=== PATIENT | male | born 1950 | race Caucasian/White ===

== ENCOUNTER 2016-04-29 07:57 | Inpatient (IN) | payer OTHER, MEDICARE ==
--- NOTE | ~2016-04-29 | EKG ---
PATIENT: TOM VELARDE UNIT #: [id number] Ventricular Rate: 110 BPM Atrial Rate: 110 BPM P-R Interval: 204 ms QRS Duration: 82 ms Q-T Interval: 422 ms QTC Calculation(Bezet): 571 ms P Preston: 26 degrees Calculated R Preston: 8 degrees Calculated T Preston: 51 degrees Diagnosis Line: Sinus tachycardia Diagnosis Line: Inferior infarct , age undetermined Diagnosis Line: Abnormal ECG Diagnosis Line: When compared with ECG of 15-MAY-2014 15:41, Diagnosis Line: Vent. rate has increased BY 53 BPM Diagnosis Line: Inferior infarct is now Present Diagnosis Line: ST now depressed in Lateral leads Diagnosis Line: T wave inversion now evident in Inferior leads Diagnosis Line: QT has lengthened Diagnosis Line: Confirmed by KELLEE SINGH MD ([id number]) on 05/02/2016 Diagnosis Line: 2:47:06 PM INTERPRETING MD: FRANCISCO LEE
--- NOTE | ~2016-04-29 | DS ---
Unit #: [id number] #: [id number] Patient: TOM TOLEDO [id number] [address] [place], [place] [address] [id number] I MR#: [id number] NAME: TOM TOLEDO. ROOM: [facility] Age: 65 Sex: M Admission Date: 04/29/2016 : 1950 Discharge Date: 05/04/2016 Attending Physician: Obed Blue M.D. Primary Care Physician: Marielos An M.D. DISCHARGE SUMMARY HISTORY/HOSPITAL COURSE Mr. Toledo is a 65-year-old gentleman who underwent a colonoscopy as an outpatient. He was found to have a large polypoid mass in the ascending colon. He was scheduled for a right hemicolectomy. He came in the morning of surgery and underwent a right hemicolectomy. The procedure was very routine and straightforward. The patient was admitted to the hospital postoperatively, but postoperatively he developed some tachycardia and some bright red blood per rectum, but based on his exam it appeared as though he had developed some postoperative bleeding from the staple line. He was able to be treated conservatively and the bleeding eventually stopped, but he did require transfusion of a unit of blood. Because of the persistence of his tachycardia and n.p.o. status he had to be taken off his cardiovascular medications. Cardiology was consulted. He was put on an amiodarone drip for a short period of time and then converted to oral medicines once he had regained bowel function. The patient's preoperative CEA was 1.4. 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 His final pathology was T1, N0, M0 with clear margins. He had 31 lymph nodes removed and all were clear. The patient's laboratories are now normalized. He is converted to normal sinus rhythm. He has been switched to oral cardiac medications. He is tolerating a regular diet and passing copious flatus and a small amount of stool. DISPOSITION Today he will be discharged home in stable condition once cardiology has seen the patient and addressed his cardiovascular medications for home care. DIET At home he can undergo diet as tolerated. ACTIVITY He can ambulate ad steve. He was told not to do any lifting more than 15 pounds or any strenuous activity. He may shower. DISCHARGE MEDICATION 1. He may use a laxative as needed. 2. A prescription for hydrocodone was left for pain control. FOLLOWUP He is to follow up in the office in two weeks. The patient understood these instructions and will be discharged home after he is seen by cardiology. Unit #: [id number] #: [id number] Patient: TOM TOLEDO Dictated by... Obed Blue M.D. RS/josefa TD: 05/05/2016 11:41 JOB #: [id number] DISCHARGE SUMMARY X Obed Blue MD X DISCHARGE SUMMARY
--- NOTE | ~2016-04-29 | CO ---
Unit #: [id number] #: [id number] Patient: TOM VELARDE [id number] [facility] [address]. [place], [place] [address] [id number] I MR#: [id number] NAME: TOM VELARDE ROOM: [facility] Age: 65 Sex: M Admission Date: 04/29/2016 : 1950 Attending Physician: Obed Blue M.D. Primary Care Physician: Marielos An M.D. Consultation Date: 04/30/2016 CONSULTATION REPORT REASON FOR CONSULT Tachycardia. HISTORY OF PRESENT ILLNESS This is a 65-year-old white male, known to Dr. Rudd, with a past medical history of hypertension, hyperlipidemia, diabetes mellitus type 2, and GERD. The patient has a history of syncope and bradycardia while on diltiazem. He was admitted to [facility] for this episode in 05/2014. Holter monitor was obtained and revealed rare supraventricular and ventricular ectopy. 2D echocardiogram revealed trace mitral and tricuspid regurgitation. He had mild pulmonic regurgitation. Ejection fraction was mildly low at 45% to 50%. There was some grade 1 diastolic dysfunction with impaired LV relaxation. The patient follows with Dr. Rudd and states that he had a recent stress test and echocardiogram in 2016. The stress test was reportedly normal, but records are unavailable. He presented to [facility] on 04/29/2016 for a scheduled right hemicolectomy. He underwent a colonoscopy in 03/2016 and was found to have some colon polyps, which were removed. He was also noted to have a colon mass. Biopsy was positive for tubular adenoma. The patient underwent the right hemicolectomy successfully on 04/29/2016. He was transferred to med-surgical floor with telemetry postprocedure. He was noted to have low oxygen levels and was placed on oxygen. Telemetry has revealed sinus tachycardia with rates in the one teens to 130s. Cardiology was consulted for tachycardia. The patient denies any chest pain. There are no reports of dizziness or palpitations. He denies any lower extremity edema. He does admit to some shortness of breath. He is currently on 6 L nasal cannula and his O2 saturation is 91%. Labs reveal a hemoglobin of 8.1, he was previously 14.6 prior to the surgery. Creatinine is elevated at 2 with a previous creatinine of 1.1. Magnesium is low at 1.3. Postoperative EKG reveals sinus tachycardia with no acute ST or T-wave changes. QTc is prolonged at 571 milliseconds. PAST MEDICAL HISTORY 1. Recent stress test at [facility] in 2016 reportedly normal per the patient. Records unavailable. 2. 2D echocardiogram, 05/16/2014, revealed borderline LVH. Grade 1 diastolic dysfunction with impaired LV relaxation. Left ventricular ejection fraction 45% to 50%. Trace mitral and tricuspid regurgitation. Mild pulmonic regurgitation. 3. 24-hour Holter monitor on 05/16/2014 revealed rare supraventricular and ventricular ectopy. Unit #: [id number] #: [id number] Patient: TOM VELARDE 4. Syncope, 05/2014, with evidence of bradycardia while on diltiazem. 5. Hypertension. 6. Hyperlipidemia. 7. Diabetes mellitus, type 2. 8. GERD. 9. Cardiac ablation two years ago due to atrial fibrillation with RVR, now in sinus rhythm/sinus tach. 10. Nonsmoker. PAST SURGICAL HISTORY 1. Cardiac ablation approximately two years ago. 2. Kidney stone removal. 3. Back surgery x3. 4. Cholecystectomy. 5. Appendectomy. 6. EGD x2. 7. Hernia repair. 8. Ureteral stent. 9. Recent colonoscopy, 03/17/2016, by Dr. Blue revealed colon polyps and an ascending colon mass. Biopsy positive for tubular adenoma. HOME MEDICATIONS Gabapentin 600 mg p.o. t.i.d., hydrocodone 10/325 mg one tablet p.o. every 6 hours p.r.n. for pain, Robaxin 750 mg p.o. q.i.d., Glucophage 500 mg p.o. b.i.d., Lipitor 20 mg p.o. q.h.s., fish oil 1000 mg p.o. daily, vitamin B12 1000 mcg p.o. daily, aspirin 81 mg p.o. daily, Senokot 8.6 mg p.o. daily, Celexa 20 mg p.o. q.h.s., lisinopril 40 mg p.o. daily, diltiazem 240 mg p.o. daily, Mucinex 1 tablet p.o. b.i.d. as needed, Tylenol 1 tablet p.o. daily as needed, hydralazine 10 mg p.o. t.i.d. ALLERGIES Sulfa. SOCIAL HISTORY The patient lives in a private residence. He is a lifetime nonsmoker. There are no reports of alcohol or illicit drug use. FAMILY HISTORY Significant for heart disease. His father had a pacemaker, coronary artery disease, and underwent coronary artery bypass grafting reportedly in his 50s. REVIEW OF SYSTEMS 12-point review of systems is negative except for details noted above in HPI. PHYSICAL EXAMINATION VITAL SIGNS: Temperature 98.9, pulse 115, blood pressure 100/59. CONSTITUTIONAL: This is a 65-year-old white male, in no acute distress. SKIN: Warm and dry. Pale. NECK: Supple. No jugular vein distention. No hepatojugular reflux. Normal carotid upstrokes. No carotid bruits auscultated. HEART: S1 and S2. Regular rate and rhythm, but tachycardic. Soft systolic ejection murmur at the left sternal border, grade 1/6. No rubs or gallops. LUNGS: Bilateral breath sounds have good air entry throughout all lung ortiz, slightly diminished in the bases. Respirations are even and nonlabored. No rales, rhonchi, or wheezes. Unit #: [id number] #: [id number] Patient: LONG,TOM T ABDOMEN: Obese, soft, and slightly distended. Hypoactive bowel sounds auscultated. No ascites noted. EXTREMITIES: Bilateral lower extremities have no pretibial pitting edema. DP and PT pulses 2+. Capillary refill less than 3 seconds. DIAGNOSTIC STUDIES LABORATORY RESULTS: White blood cell count 28.1, hemoglobin 8.1, hematocrit 24.5, platelets 281. Sodium 136, potassium 4.6, chloride 106, CO2 of 21, BUN 14, creatinine 2.0, glucose 337, magnesium 1.3. IMAGING STUDIES: Chest x-ray reveals slightly blunted left costophrenic angle with cardiomegaly. No vascular congestion. CARDIOVASCULAR STUDIES: EKG reveals sinus tachycardia with a ventricular rate of 110 beats per minute. Q-waves in the inferior leads. Prolonged QTc of 571 milliseconds. IMPRESSION 1. Status post right hemicolectomy due to tubular adenoma. 2. Acute blood loss anemia. 3. Leukocytosis, possibly reactive. 4. Hypoxia, now on 6 L nasal cannula. 5. Acute kidney injury. 6. Hypomagnesemia. 7. Sinus tachycardia. 8. Normal stress test reportedly in 2016. Records pending. 9. Left ventricular ejection fraction 45% to 50%, 05/2014. 10. Trace mitral and tricuspid regurgitation. Mild pulmonic regurgitation, 05/2014. 11. History of paroxysmal atrial fibrillation, status post ablation approximately two years ago. 12. Hyperlipidemia. 13. Diabetes mellitus, type 2. PLAN 1. The patient presented to the hospital for right hemicolectomy due to a colon mass. He underwent the procedure and was transferred to telemetry. 2. Cardiology was consulted due to sinus tachycardia. 3. The patient's tachycardia is likely due to acute blood loss anemia and stress from surgery. He will be started on IV fluids. 4. Low-dose beta-katlin will be prescribed as needed for heart rate greater than 130. 5. Portable chest x-ray has been ordered and reviewed. There is no evidence of congestive heart failure. 6. There are no complaints of chest pain. Postoperative EKG reveals no acute findings. QTc is prolonged and will need to be followed. 7. The patient's blood pressure is borderline low. We will hold off on home dosing of diltiazem, hydralazine, and lisinopril. 8. He does have a history of atrial fibrillation, but is currently in sinus rhythm. He is not on anticoagulation at home. The patient will need to follow up with Dr. Rudd to discuss anticoagulation options. No anticoagulation will be prescribed at this time due to anemia. Dictated by... Amber Gifford APRN for Mario Acevedo M.D. TR/nikial Unit #: [id number] #: [id number] Patient: TOM VELARDE TD: 05/02/2016 03:45 JOB #: [id number] CC: Mario Acevedo M.D. [facility] CONSULTATION REPORT X X CONSULTATION REPORT
--- NOTE | ~2016-04-29 | OR ---
Unit #: [id number] #: [id number] Patient: TOM VELARDE [id number] [facility] [address]. [place], [place] [address] [id number] I MR#: [id number] NAME: TOM VELARDE. ROOM: 456 Date of Procedure: 04/29/2016 Admission Date: 04/29/2016 Surgeon: Obed Blue M.D. : 1950 Attending Physician: Obed Blue M.D. Primary Care Physician: Marielos An M.D. OPERATIVE REPORT POSTOPERATIVE DIAGNOSIS Ascending colon mass consistent with endoscopically unresectable villous adenoma. POSTOPERATIVE DIAGNOSES Ascending colon mass consistent with endoscopically unresectable villous adenoma. PROCEDURE PERFORMED Right hemicolectomy. ANESTHESIA General endotracheal anesthesia. ESTIMATED BLOOD LOSS 50 mL. INDICATIONS FOR PROCEDURE A 65-year-old gentleman, undergoing routine colonoscopy and was found to have multiple polyps. In the ascending colon, he had a very large polyp that was too large to be safely removed endoscopically. On biopsy, it was a villous adenoma, but it was a very large lesion. After discussion with the family, we plan on doing a right hemicolectomy to remove the polyp and also in case there is an associated carcinoma in the lesion. His formal lane resection would be completed. DESCRIPTION OF PROCEDURE The patient was admitted to [facility], positively identified, and transported to the operating room. In preoperative hold, he received Entereg and Lovenox and SCDs were placed. After induction of general endotracheal anesthesia, he received IV antibiotics per SCIP protocol. Porras catheter was placed. Orogastric tube was placed. His abdominal wall was clipped and prepped and draped in usual sterile fashion. He had a large epigastric diastasis recti, so an extended midline incision was made, so that they could be corrected at the patient's request. Once we entered the peritoneal cavity, we identified the ascending colon and the mass in the colon which had been previously tattooed. The cecum and the ascending colon were mobilized along the peritoneal reflection up to the level of the hepatic flexure. The omentum was dissected off the hepatic flexure and proximal transverse colon and then the terminal ileum was mobilized. The terminal ileum was divided with a MIKE stapler and then the proximal transverse colon was divided with Unit #: [id number] #: [id number] Patient: TOM VELARDE MIKE stapler. The ascending colon mesentery was sequentially clamped, divided, and ligated to remove the ascending colon and it was lane drainage. The specimen was sent for permanent section. There was excellent hemostasis. A functional end-to-end and [id number] stapled anastomosis using the full length of a 75 mm stapler was performed between the terminal ileum and the proximal transverse colon. The open end was secured with 2 layers of silk suture. Then, the mesenteric defect was closed with silk suture. We checked the operative site, there was excellent hemostasis. The liver had no palpable lesions. The bowel was placed back in the anatomic position. Omentum was pulled over the bowel and the abdominal cavity was irrigated with saline and the irrigant came back clear. I then closed the fascial defect with interrupted 0 Vicryl sutures. Once the fascia was closed, I irrigated the soft tissue and closed the skin with sterile skin ramana. The patient was valsalved by the anesthesiologist and the diastasis recti appeared to be corrected. Dry sterile dressing was placed. Sponges and needle counts were correct x3. The patient tolerated the procedure well and transported to recovery in stable condition. Findings and postoperative expectations were discussed with the family. Dictated by... Quintin Giordano/boogie TD: 04/30/2016 06:20 JOB #: [id number] OPERATIVE REPORT X Obed Blue MD PROCEDURE OPERATIVE NOTE
--- NOTE | ~2016-04-29 | CR72 ---
[facility] A Service of [facility] RADIOLOGY TEXT RESULTS PATIENT: TOM VELARDE LOCATION: [facility] : [birth year] UNIT #: [id number] AGE: [address]: Obed Blue MD SEX: M ORDER DR: [id number] [facility] [address] [place], [place] [address] [id number] I MR#: [id number] Acc #: [id number] NAME: TOM VELARDE : 1950 SEX: M STUDY DATE/TIME: 04/30/2016 13:25 UNIT: [facility] ROOM: [facility] STUDY DESCRIPTION: CR Chest Single View Portable Attending Physician: Obed Blue M.D. Ordering Physician: Ed Doctor [id number] [facility] Primary Care Physician: Marielos An M.D. MEDICAL IMAGING REPORT This report is preliminary unless electronic signature is present EXAM Chest portable, 04/30/2016 13:25 hours HISTORY 65-year-old man with mild congestion, low oxygen saturation level today. Hypertension. COMPARISON 05/15/2014 FINDINGS Portable upright chest demonstrates low lung volumes. Allowing for this, the cardiac, mediastinal and hilar contours are stable. There is mild left retrocardiac density. Atelectasis is favored over pneumonia given this level of inspiration. No effusion seen. Gaseous distension of the stomach is noted. IMPRESSION 1. Very low lung volume film with mild left retrocardiac density. Atelectasis is favored over pneumonia. There is no pleural effusion. No pneumothorax. 2. Gaseous distension of the stomach is noted. Dictated by... Geetha Dover M.D. THIS IS AN ELECTRONICALLY VERIFIED REPORT Geetha Dover M.D. at 05/01/2016 7:55 AM Madhu TD: 04/30/2016 16:28 JOB #: [id number] [facility] A Service of [facility] RADIOLOGY TEXT RESULTS PATIENT: TOM VELARDE LOCATION: [facility] : [birth year] UNIT #: [id number] AGE: [address]: Obed Blue MD SEX: M ORDER DR: MEDICAL IMAGING REPORT COPY
--- NOTE | ~2016-04-29 | EKG ---
PATIENT: TOM VELARDE UNIT #: [id number] Ventricular Rate: 135 BPM Atrial Rate: 326 BPM QRS Duration: 80 ms Q-T Interval: 266 ms QTC Calculation(Bezet): 399 ms Calculated R Fred: -10 degrees Calculated T Fred: 56 degrees Diagnosis Line: Atrial flutter with variable A-V block Diagnosis Line: Inferior infarct (cited on or before 30-APR-2016) Diagnosis Line: Abnormal ECG Diagnosis Line: When compared with ECG of 30-APR-2016 11:16, Diagnosis Line: (unconfirmed) Diagnosis Line: Atrial flutter has replaced Sinus rhythm Diagnosis Line: Confirmed by GRACIELA GREGORY MD ([id number]) on Diagnosis Line: 05/02/2016 5:13:29 PM INTERPRETING MD: MARIANO
[~2016-04-29 07:57] MED LIST: ASPIRIN PO; AUGMENTIN875 MG PO; B/P MED; BAYER CHEWABLE81 MG PO; CARDIZEM CD PO; CARDIZEM CD240 M2 PO; CARDIZEM PO; CARDIZEM SR PO; CELEXA20 MG PO; CLONIDINE PO; DILTIA XT120 MG PO; DILTIAZEM 24HR240 M1 PO; DILTIAZEM ER60 MG PO; DOXYCYCLINE HY100 M1 PO; FISH OIL 1,0001 EACH PO; FLOMAX0.4 M1 PO; GABAPENTIN600 MG PO; GLUCOPHAGE500 MG PO; GRALISE1 EACH PO; HYDRALAZINE HCL10 MG PO; HYDROCODON-ACE1 EAC4 PO; HYDROCODON-ACE1 EAC5 PO; KEFLEX PO; LIPITOR20 MG PO; LISINOPRIL PO; LISINOPRIL20 MG PO; LISINOPRIL30 MG PO; LORTAB 10-5001 EACH PO; METFORMIN HCL500 M1 PO; MUCINEX FAST-M1 EAC2 PO; NAPROSYN500 MG PO; PYRIDIUM PO; ROBAXIN 750750 M1 PO; ROBAXIN PO; SENNA PO; TYLENOL SINUS PO; VICODIN 5/500 T1 TAB PO; VIT B-12 PO; VITAMIN B122500 MCG PO
[2016-04-29 08:41] LABS: BASOPHIL# 0.1 X10e3 (0-0.3); BASOPHIL% 0.6 % (0-2.5); EOSINOPHIL# 0.1 X10e3 (0-0.7); EOSINOPHIL% 1.1 % (0.0-7.0); HEMATOCRIT 42.8 % (38.0-50.0); HEMOGLOBIN 14.6 gm/dL (13.0-16.0); LYMPHOCYTE# 1.7 X10e3 (1.0-3.5); MEAN CELL VOLUME 94.3 FL (83-96); MEAN CORPUSCULAR HEMOGLOBIN 32.1 PG (28-34); MEAN PLATELET VOLUME 7.6 FL (6.5-11.5); MONOCYTE# 0.6 X10e3 (0-1.0); NEUTROPHIL# 6.3 X10e3 (1.5-7.1); NEUTROPHIL% 72.3 % (40-75); PLATELET COUNT 193 X10e3 (140-420); RED BLOOD COUNT 4.54 X10e (3.90-5.60); RED CELL DISTRIBUTION WIDTH 13.2 % (11.0-15.5); WHITE BLOOD COUNT 8.7 X10e3 (4.0-10.5)
[2016-04-29 08:47] LABS: DIFF IND NO
[2016-04-29 09:16] LABS: BLOOD UREA NITROGEN 10 mg/dL (9-23); BUN/CREATININE RATIO 9.09; CALCIUM SERUM 9.6 mg/dL (8.4-10.2); CARBON DIOXIDE 27 mmol/L (22-31); CHLORIDE 99 mmol/L (100-111); CREATININE SERUM 1.1 mg/dL (0.6-1.4); GLOM FILT RATE Estimated ABOVE60 mL/min (>60); GLUCOSE FASTING 127 mg/dL (70-110); POTASSIUM 3.9 mmol/L (3.5-5.1); SODIUM 137 mmol/L (135-145)
[2016-04-30 03:17] LABS: HEMATOCRIT 29.1 % (38.0-50.0); MEAN CELL VOLUME 97.1 FL (83-96); MEAN CORPUSCULAR HGB CONC 32.9 g/dL (30-36); MEAN PLATELET VOLUME 8.2 FL (6.5-11.5); RED BLOOD COUNT 2.99 X10e (3.90-5.60); RED CELL DISTRIBUTION WIDTH 13.4 % (11.0-15.5); WHITE BLOOD COUNT 28.1 X10e3 (4.0-10.5)
[2016-04-30 03:18] LABS: HEMOGLOBIN 9.6 gm/dL (13.0-16.0)
[2016-04-30 03:42] LABS: GLOM FILT RATE Estimated 35.8 mL/min (>60); MAGNESIUM 1.3 mg/dL (1.6-3.0); PHOSPHOROUS 4.1 mg/dL (2.5-4.6); POTASSIUM 4.6 mmol/L (3.5-5.1)
[2016-04-30 03:43] LABS: CALCIUM SERUM 7.6 mg/dL (8.4-10.2)
[2016-04-30 09:30] LABS: HEMATOCRIT 24.5 % (38.0-50.0); HEMOGLOBIN 8.1 gm/dL (13.0-16.0)
[2016-04-30 20:25] LABS: HEMATOCRIT 25.4 % (38.0-50.0); HEMOGLOBIN 8.3 gm/dL (13.0-16.0)
[2016-05-01 07:07] LABS: BASOPHIL% 0.1 % (0-2.5); EOSINOPHIL% 0.1 % (0.0-7.0); HEMATOCRIT 23.4 % (38.0-50.0); HEMOGLOBIN 7.9 gm/dL (13.0-16.0); LYMPHOCYTE# 1.8 X10e3 (1.0-3.5); LYMPHOCYTE% 10.2 % (17.0-45.0); MEAN CORPUSCULAR HEMOGLOBIN 31.3 PG (28-34); MEAN CORPUSCULAR HGB CONC 33.6 g/dL (30-36); MEAN PLATELET VOLUME 7.7 FL (6.5-11.5); MONOCYTE# 1.1 X10e3 (0-1.0); MONOCYTE% 6.5 % (3.0-12.0); NEUTROPHIL# 14.3 X10e3 (1.5-7.1); NEUTROPHIL% 83.1 % (40-75); RED BLOOD COUNT 2.51 X10e (3.90-5.60); RED CELL DISTRIBUTION WIDTH 14.7 % (11.0-15.5); WHITE BLOOD COUNT 17.2 X10e3 (4.0-10.5)
[2016-05-01 07:08] LABS: DIFF IND YES; MEAN CELL VOLUME 93.3 FL (83-96); PLATELET COUNT 125 X10e3 (140-420)
[2016-05-01 07:22] LABS: PLATELET ESTIMATE NORMAL (NORMAL); RBC NORMAL YES
[2016-05-01 07:29] LABS: BUN/CREATININE RATIO 12.14; CALCIUM SERUM 7.6 mg/dL (8.4-10.2); CREATININE SERUM 1.4 mg/dL (0.6-1.4); GLOM FILT RATE Estimated 54.1 mL/min (>60); MAGNESIUM 1.8 mg/dL (1.6-3.0); POTASSIUM 4.8 mmol/L (3.5-5.1)
[2016-05-01 12:23] LABS: HEMATOCRIT 23.6 % (38.0-50.0); HEMOGLOBIN 8.1 gm/dL (13.0-16.0)
[2016-05-01 18:51] LABS: HEMATOCRIT 28.4 % (38.0-50.0)
[2016-05-02 00:24] LABS: HEMATOCRIT 24.1 % (38.0-50.0); HEMOGLOBIN 8.1 gm/dL (13.0-16.0)
[2016-05-02 06:39] LABS: HEMATOCRIT 22.3 % (38.0-50.0); HEMOGLOBIN 7.6 gm/dL (13.0-16.0)
[2016-05-02 07:10] LABS: BLOOD UREA NITROGEN 9 mg/dL (9-23); BUN/CREATININE RATIO 12.85; CALCIUM SERUM 7.7 mg/dL (8.4-10.2); CARBON DIOXIDE 21 mmol/L (22-31); CHLORIDE 105 mmol/L (100-111); CREATININE SERUM 0.7 mg/dL (0.6-1.4); GLOM FILT RATE Estimated ABOVE60 mL/min (>60); GLUCOSE FASTING 142 mg/dL (70-110); MAGNESIUM 1.7 mg/dL (1.6-3.0); POTASSIUM 4.6 mmol/L (3.5-5.1); SODIUM 136 mmol/L (135-145)
[2016-05-02 08:38] LABS: HEMATOCRIT 22.5 % (38.0-50.0); HEMOGLOBIN 7.4 gm/dL (13.0-16.0); MEAN CELL VOLUME 93.5 FL (83-96); MEAN CORPUSCULAR HEMOGLOBIN 30.8 PG (28-34); MEAN PLATELET VOLUME 7.9 FL (6.5-11.5); RED BLOOD COUNT 2.41 X10e (3.90-5.60); RED CELL DISTRIBUTION WIDTH 14.3 % (11.0-15.5); WHITE BLOOD COUNT 14.6 X10e3 (4.0-10.5)
[2016-05-02 09:02] LABS: BLOOD UREA NITROGEN 8 mg/dL (9-23); BUN/CREATININE RATIO 11.42; CALCIUM SERUM 7.6 mg/dL (8.4-10.2); CARBON DIOXIDE 22 mmol/L (22-31); CHLORIDE 105 mmol/L (100-111); CREATININE SERUM 0.7 mg/dL (0.6-1.4); GLOM FILT RATE Estimated ABOVE60 mL/min (>60); GLUCOSE FASTING 142 mg/dL (70-110); MAGNESIUM 1.7 mg/dL (1.6-3.0); POTASSIUM 4.2 mmol/L (3.5-5.1); SODIUM 135 mmol/L (135-145)
[2016-05-03 03:16] LABS: HEMATOCRIT 25.5 % (38.0-50.0); HEMOGLOBIN 8.7 gm/dL (13.0-16.0); MEAN CORPUSCULAR HEMOGLOBIN 30.7 PG (28-34); MEAN CORPUSCULAR HGB CONC 34.2 g/dL (30-36); MEAN PLATELET VOLUME 7.7 FL (6.5-11.5); RED BLOOD COUNT 2.84 X10e (3.90-5.60); RED CELL DISTRIBUTION WIDTH 15.9 % (11.0-15.5); WHITE BLOOD COUNT 13.9 X10e3 (4.0-10.5)
[2016-05-03 03:34] LABS: BLOOD UREA NITROGEN 8 mg/dL (9-23); CALCIUM SERUM 7.7 mg/dL (8.4-10.2); CARBON DIOXIDE 23 mmol/L (22-31); CHLORIDE 103 mmol/L (100-111); CREATININE SERUM 0.8 mg/dL (0.6-1.4); GLOM FILT RATE Estimated ABOVE60 mL/min (>60); GLUCOSE FASTING 175 mg/dL (70-110); MAGNESIUM 1.7 mg/dL (1.6-3.0); POTASSIUM 3.7 mmol/L (3.5-5.1); SODIUM 135 mmol/L (135-145)
[2016-05-03 03:54] LABS: MEAN CELL VOLUME 89.8 FL (83-96)
[2016-05-03 19:29] LABS: HEMATOCRIT 27.1 % (38.0-50.0); HEMOGLOBIN 9.1 gm/dL (13.0-16.0)
[2016-05-04 03:13] LABS: BASOPHIL% 0.2 % (0-2.5); EOSINOPHIL# 0.1 X10e3 (0-0.7); EOSINOPHIL% 1.2 % (0.0-7.0); HEMOGLOBIN 8.2 gm/dL (13.0-16.0); LYMPHOCYTE# 2.2 X10e3 (1.0-3.5); LYMPHOCYTE% 18.8 % (17.0-45.0); MEAN CORPUSCULAR HEMOGLOBIN 30.6 PG (28-34); MONOCYTE# 0.9 X10e3 (0-1.0); MONOCYTE% 7.7 % (3.0-12.0); NEUTROPHIL# 8.5 X10e3 (1.5-7.1); NEUTROPHIL% 72.1 % (40-75); PLATELET COUNT 158 X10e3 (140-420); RED BLOOD COUNT 2.67 X10e (3.90-5.60); RED CELL DISTRIBUTION WIDTH 15.8 % (11.0-15.5); WHITE BLOOD COUNT 11.8 X10e3 (4.0-10.5)
[2016-05-04 03:14] LABS: DIFF IND NO
[2016-05-04 03:40] LABS: BLOOD UREA NITROGEN 13 mg/dL (9-23); BUN/CREATININE RATIO 14.44; CALCIUM SERUM 8.1 mg/dL (8.4-10.2); CARBON DIOXIDE 24 mmol/L (22-31); CHLORIDE 100 mmol/L (100-111); CREATININE SERUM 0.9 mg/dL (0.6-1.4); GLOM FILT RATE Estimated ABOVE60 mL/min (>60); GLUCOSE FASTING 114 mg/dL (70-110); MAGNESIUM 1.8 mg/dL (1.6-3.0); POTASSIUM 3.8 mmol/L (3.5-5.1); SODIUM 132 mmol/L (135-145)
[2016-05-04] MEDS ORDERED: HYDROCODONE-APA1 T54 PO (14:07)
[2016-05-04] MEDS ORDERED: PACERONE PO ×3 (14:10→14:12)
== END 2016-05-04 15:30 | disposition home or self-care (01) | DRG 330 ==
LOC: CSUR 07:57 → CPACUOF 12:58 → C4B 14:00
PROVIDERS: Internal Medicine Cardiovascular Disease; Specialist; Surgery
PROC: 0DTF0ZZ Resection of Right Large Intestine, Open Approach (ICD-10-PCS; principal; 2016-04-29 10:00)
PROC: 30233N1 Transfusion of Nonautologous Red Blood Cells into Peripheral Vein, Percutaneous Approach (ICD-10-PCS; 2016-05-02)
DX: C18.0 Malignant neoplasm of cecum (principal); I48.92 Unspecified atrial flutter; N17.9 Acute kidney failure, unspecified; G62.9 Polyneuropathy, unspecified; E83.42 Hypomagnesemia; I48.91 Unspecified atrial fibrillation; I08.1 Rheumatic disorders of both mitral and tricuspid valves; I48.0 Paroxysmal atrial fibrillation; I10 Essential (primary) hypertension; D62 Acute posthemorrhagic anemia; I97.89 Other postprocedural complications and disorders of the circulatory system, not elsewhere classified; K91.840 Postprocedural hemorrhage of a digestive system organ or structure following a digestive system procedure; D12.6 Benign neoplasm of colon, unspecified; I25.10 Atherosclerotic heart disease of native coronary artery without angina pectoris; E11.9 Type 2 diabetes mellitus without complications; K21.9 Gastro-esophageal reflux disease without esophagitis; E78.5 Hyperlipidemia, unspecified; Z87.442 Personal history of urinary calculi; Z90.49 Acquired absence of other specified parts of digestive tract; Z88.2 Allergy status to sulfonamides; Z79.84 Long term (current) use of oral hypoglycemic drugs; D72.829 Elevated white blood cell count, unspecified; R00.0 Tachycardia, unspecified; Y83.9 Surgical procedure, unspecified as the cause of abnormal reaction of the patient, or of later complication, without mention of misadventure at the time of the procedure
CPT/HCPCS: 71010; 80048; 82947; 83735; 83880; 84100; 85014; 85018; 85025; 85027; 86850; 86900; 86901; 86923; 88309; 88313; 88341; 88342; 93005; 94760; C9113; J0131; J0282; J0330; J0360; J1100; J1170; J1650; J1815; J1885; J1940; J2250; J2270; J2405; J2710; J2765; J3010; J3475; J3490; P9016